=== PATIENT | female | born 1945 | race Caucasian/White ===

== ENCOUNTER 2019-01-31 07:01 | Day surgery (SDC) | payer OTHER ==
[2019-01-31] MEDS ORDERED: CYCLOPENTOLATE 1% OPTH 2 ML ONE (07:35)
[2019-01-31] MEDS ORDERED: NA CHLORIDE 0.9% 500 ML ONE (07:35)
[2019-01-31] MEDS ORDERED: LIDOCAINE 2% MPF 5 ML VIAL ONE (07:35)
[2019-01-31] MEDS ORDERED: PHENYLEPHRINE 10% OPTH 5ML ONE (07:36)
[2019-01-31] MEDS ORDERED: BUPIVACAINE 0.25% PF 10 ML VIAL ONE (07:36)
[2019-01-31] MEDS ORDERED: LIDOCAINE HCL/PF 3.5% OPTH GEL ONE (07:36)
[2019-01-31] MEDS ORDERED: TETRACAINE HCL 0.5% 2ML OPTH ONE (07:36)
[2019-01-31] MEDS ORDERED: CYCLOPENTOLATE 1% OPTH 2 ML OPTH ONE ×2 (07:39→07:53)
[2019-01-31] MEDS ORDERED: PHENYLEPHRINE 10% OPTH 5ML OPTH ONE ×2 (07:39→07:53)
[2019-01-31] MEDS ORDERED: LIDOCAINE 1% MPF 5 ML VIAL ONE (07:48)
[2019-01-31] MEDS ORDERED: BALANCED SALT IRRIG PLAIN 500 ML BTL IRR ONE (08:21)
[2019-01-31] MEDS ORDERED: NS 0.9% VIAL 10 ML ONE (08:21)
[2019-01-31] MEDS ORDERED: EPINEPHRINE/PF 1 MG/ML AMP ONE (08:21)
[2019-01-31] MEDS ORDERED: MOXIFLOXACIN HCL 10 DROPS/ML **OR USE OPTH ONE (08:21)
[2019-01-31] MEDS ORDERED: DUOVISC 1 KIT OPTH ONE (08:21)
[2019-01-31] MEDS ORDERED: LIDOCAINE 1% MPF 2 ML AMPULE ONE (08:21)
[2019-01-31] MEDS ORDERED: FENTANYL CITR 100 MCG/2 ML ONE (09:17)
[2019-01-31] MEDS ORDERED: MIDAZOLAM HCL 2 MG/2 ML INJ ONE (09:17)
--- NOTE | 2019-01-31 10:10 | P.BOP ---
Preoperative diagnosis: Nuclear sclerotic cataract and regular astigmatism OS Postoperative diagnosis: Same Primary procedure: Phacoemulsification with Toric IOL OS Estimated blood loss: None Anesthesia: Local (Topical with anesthesia for cataract surgery OS) Complications: None Implants: [id number] +24.0 @ 1 degrees Transferred to: Other (Day surgery) Condition: Good
--- NOTE | 2019-01-31 20:59 | OP ---
Date of Procedure: 01/31/2019 Surgeon: Luzmaria Almodovar MD Anesthesiologist: Patricia Bauer CRNA, and Jermaine Larson M.D. Preoperative Diagnosis: Nuclear sclerotic cataract and regular astigmatism, OS (left eye). Operation Performed: Phacoemulsification with toric intraocular lens implant, left eye. Anesthesia: Per cataract surgery. Complications: None. Description Of Procedure: In the operating room the patient was prepped and draped in the usual ster ile fashion for ophthalmic surgery. A lid speculum was placed in the left eye. Two paracentesis sit es were made superiorly and inferiorly in the limbal cornea. Viscoat was placed in the anterior neto tiana and a crescent blade was used to make a corneal groove and tunnel, and a keratome was used to ent er the anterior chamber. Provisc was placed in the anterior chamber and a 360 degree capsulotomy was performed with a cystitome. The lens was hydrodissected with BSS and rotated freely. The lens was removed with a stop and chop technique. A 5.31 phaco CDE was used to remove the lens. Residual sridhar ex was removed with the irrigation and aspiration. Provisc was placed in the capsular bag. A [id number] + 24.0 at 1 degree lens was placed in the capsular bag without complications. Irrigation and aspira tion was used to remove residual viscoelastic. The paracentesis sites were hydrated with BSS. The w ound and paracentesis sites were inspected and found to be watertight. Vigamox 0.07 cc was placed in tracamerally at the end of the procedure. The eye was irrigated with balanced salt solution. The ey e was patched with a soft cotton patch and Ervin metal shield. The patient was returned to day surgery in good condition. Comments: Akten was placed in the anterior chamber in the eye in Day Surgery and irrigated out of th e eye with BSS in the OR. Preservative free 1% lidocaine was placed in the anterior chamber prior to Viscoat. Discharge Instructions: Ms. Booker is discharged to home in good condition and is to follow up with Phuong Almodovar in the morning. HOWARD/ASHLEY Voice ID: [id number] Report ID: [id number]
== END 2019-01-31 10:40 | disposition home or self-care (01) ==
LOC: OR 07:01
PROVIDERS: ATTEND Ophthalmology Retina Specialist
PROC: 08RK3JZ Replacement of Left Lens with Synthetic Substitute, Percutaneous Approach (ICD-10-PCS; principal; 2019-01-31 09:10)
DX: H25.12 Age-related nuclear cataract, left eye (principal); H52.222 Regular astigmatism, left eye; H40.059 Ocular hypertension, unspecified eye; H04.123 Dry eye syndrome of bilateral lacrimal glands; I10 Essential (primary) hypertension; I34.1 Nonrheumatic mitral (valve) prolapse; Z88.0 Allergy status to penicillin
CPT/HCPCS: 66984; J0171; J2250; J3010; J2001; V2630; V2787

== ENCOUNTER 2019-05-16 06:57 | Day surgery (SDC) | payer OTHER ==
[2019-05-16] MEDS ORDERED: BUPIVACAINE 0.25% PF 10 ML VIAL ONE (07:44)
[2019-05-16] MEDS ORDERED: TETRACAINE HCL 0.5% 4ML OPTH ONE (07:44)
[2019-05-16] MEDS ORDERED: LIDOCAINE 2% MPF 5 ML VIAL ONE (07:44)
[2019-05-16] MEDS ORDERED: CYCLOPENTOLATE 1% OPTH 2 ML ONE (07:44)
[2019-05-16] MEDS ORDERED: NA CHLORIDE 0.9% 500 ML ONE (07:45)
[2019-05-16] MEDS ORDERED: PHENYLEPHRINE 10% OPTH 5ML ONE (07:45)
[2019-05-16] MEDS ORDERED: CYCLOPENTOLATE 1% OPTH 2 ML OPTH ONE ×2 (07:50→07:55)
[2019-05-16] MEDS ORDERED: PHENYLEPHRINE 10% OPTH 5ML OPTH ONE ×2 (07:50→07:55)
[2019-05-16] MEDS ORDERED: EPINEPHRINE/PF 1 MG/ML AMP ONE (08:06)
[2019-05-16] MEDS ORDERED: NS 0.9% VIAL 10 ML ONE (08:06)
[2019-05-16] MEDS ORDERED: BALANCED SALT IRRIG PLAIN 500 ML BTL IRR ONE (08:06)
[2019-05-16] MEDS ORDERED: DUOVISC 1 KIT OPTH ONE (08:06)
[2019-05-16] MEDS ORDERED: MOXIFLOXACIN HCL 10 DROPS/ML **OR USE OPTH ONE (08:07)
[2019-05-16] MEDS: LIDOCAINE HCL/PF 3.5% OPTH GEL ONE ×3 (08:29→09:10)
[2019-05-16] MEDS ORDERED: FENTANYL CITR 100 MCG/2 ML ONE (08:47)
[2019-05-16] MEDS ORDERED: MIDAZOLAM HCL 2 MG/2 ML INJ ONE (08:47)
[2019-05-16] MEDS ORDERED: LIDOCAINE 1% MPF 2 ML AMPULE ONE (08:55)
--- NOTE | 2019-05-16 09:55 | P.BOP ---
Preoperative diagnosis: Nuclear sclerotic cataract and regular astigmatism OD Postoperative diagnosis: Same Primary procedure: Phacoemulsification with Toric IOL OD Estimated blood loss: none Anesthesia: Local (Topical with anesthesia for cataract surgery) Complications: None Implants: [id number] +24.5 @ 173 Transferred to: Other (Day surgery) Condition: Good
--- NOTE | 2019-05-16 16:53 | OP ---
Date of Procedure: 05/16/2019 Surgeon: Luzmaria Almodovar MD Anesthesiologist: Oswald Campo CRNA and Jermaine Larson MD. Preoperative Diagnosis: Nuclear sclerotic cataract and regularized stigmatism OD (right eye). Operation Performed: Phacoemulsification with toric intraocular lens implant, right eye. Anesthesia: Per cataract surgery. Complications: None. Description Of Procedure: In the operating room the patient was prepped and draped in the usual ster ile fashion for ophthalmic surgery. A lid speculum was placed in the right eye. Two paracentesis si raj were made superiorly and inferiorly in the limbal cornea. Viscoat was placed in the anterior sarah mber and a crescent blade was used to make a corneal groove and tunnel, and a keratome was used to en ter the anterior chamber. Provisc was placed in the anterior chamber and a 360 degree capsulotomy wa s performed with a cystitome. The lens was hydrodissected with BSS and rotated freely. The lens was removed with a stop and chop technique. A 14.78 Phaco CDE was used to remove the lens. Residual co rtex was removed with the irrigation and aspiration. Provisc was placed in the capsular bag. A [id number] +24.5 at 173 degree lens was placed in the capsular bag without complications. Irrigation and asp iration was used to remove residual viscoelastic. The paracentesis sites were hydrated with BSS. Th e wound and paracentesis sites were inspected and found to be watertight. Vigamox 0.07 cc was placed intracamerally at the end of the procedure. The eye was irrigated with balanced salt solution. The eye was patched with a soft cotton patch and Ervin metal shield. The patient was returned to day surgery in good condition. Comments: Akten was placed in the eye in Day Surgery and irrigated out of the eye with BSS in the OR . Preservative-free 1% lidocaine was placed in the anterior chamber prior to Viscoat. Discharge Instructions: Ms. Booker is discharged to home in good condition. She is to follow up with Dr. Almodovar today to check her pressure and then in the morning. HOWARD/MODL Voice ID: [id number] Report ID: [id number]
== END 2019-05-16 10:28 | disposition home or self-care (01) ==
LOC: OR 06:57
PROVIDERS: ATTEND Ophthalmology Retina Specialist
PROC: 08RJ3JZ Replacement of Right Lens with Synthetic Substitute, Percutaneous Approach (ICD-10-PCS; principal; 2019-05-16 09:00)
DX: H25.11 Age-related nuclear cataract, right eye (principal); H52.221 Regular astigmatism, right eye; I10 Essential (primary) hypertension; I34.1 Nonrheumatic mitral (valve) prolapse; F32.9 Major depressive disorder, single episode, unspecified; Z79.899 Other long term (current) drug therapy
CPT/HCPCS: 66984; J0171; J2250; J3010; J2001; V2630; V2787

== ENCOUNTER 2020-02-14 12:12 | Inpatient (IN) | payer OTHER ==
[2020-02-14] MEDS ORDERED: AMIODARONE IN DEXTROSE,ISO-OSM 360 MG/200 ML BAG IV ONE ×2 (12:28→21:09)
[2020-02-14 12:57] LABS: Blood Gas Oxyhemoglobin 65.6 % (94-97); Blood O2 Saturation 65.7 % (92-98.5)
--- NOTE | 2020-02-14 13:03 | EKG ---
Test Date: 2020-02-14 Test Time: 12:32:36 Hotel Operations Manager: STEVE MEASUREMENT RESULTS: Intervals: Rate: 84 IN: QRSD: 118 QT: 348 QTc: 411 [place]: P: IN: QRS: -57 T: 73 INTERPRETIVE STATEMENTS: Atrial fibrillation Left axis deviation Incomplete right bundle branch block Septal infarct, age undetermined Abnormal ECG Compared to ECG 01/19/2004 12:07:00 Left-axis deviation now present Incomplete right bundle-branch block now present Myocardial infarct finding now present Sinus rhythm no longer present First degree AV block no longer present ST (T wave) deviation no longer present Electronically Signed On 02-14-20 13:03:03 CDT by Shai Velasquez
--- NOTE | 2020-02-14 13:06 | RAD REPORT ---
EXAM DESCRIPTION: RAD - Chest Single View - 02/14/2020 12:46 pm CLINICAL HISTORY: post cpr and intubation TECHNIQUE: AP portable chest image was obtained 02/14/2020 12:46 pm . FINDINGS: Endotracheal tube is in place. Tip is at the top of the aortic arch. NG tube has been plac ed. Tip extends to at least the diaphragm level. The tip of the NG tube is off the field of view and may not have reached the stomach. Resuscitation paddle overlies the upper right chest. Lung volumes are low. No diffuse pulmonary edema pattern seen. No focal mass or consolidation. Motion artifacts are present. IMPRESSION: ET tube in good position near the top of the aortic arch. NG tube has been placed but is not fully assessed. Tip is off the field of view. Motion artifacts are present. No focal consolidation or diffuse pulmonary edema.
[2020-02-14] MEDS ORDERED: NA BICARB 8.4% 150 MEQ in D5W 1,000 ML IV ONE (13:45)
[2020-02-14 14:27] LABS: Absolute Lymphocytes (CBC) 6.4 K/uL (0.7-4.9); Basophils % 0.5 % (0-1.3); Hematocrit 43.1 % (36.0-45.0); Lymphocytes % 29.1 % (15.3-44.8); MPV 9.3 fL (7.6-11.3); RBC Red Blood Cell Count 4.54 M/uL (3.86-4.86)
[2020-02-14 14:28] LABS: Protime INR 1.62
[2020-02-14 14:44] LABS: Albumin 2.5 g/dL (3.4-5.0); Bilirubin Total 0.6 mg/dL (0.2-1.0); Protein, Total 5.6 g/dL (6.4-8.2)
[2020-02-14 14:50] LABS: Bilirubin Direct 0.2 mg/dL (0-0.2); Magnesium 2.6 mg/dL (1.8-2.4); Potassium 5.2 mmol/L (3.5-5.1)
[2020-02-14 15:29] LABS: Troponin (Emerg Dept Use Only) 81.8 ng/mL (0.0-0.045)
[2020-02-14 15:43] LABS: Urine Bacteria <20 /HPF (<20); Urine Culture Reflex Order NOT NEEDED; Urine RBC <5 /HPF (NONE SEEN)
[2020-02-14] MEDS ORDERED: EPINEPHRINE/PF 1 MG/ML AMP ONE (15:45)
[2020-02-14] MEDS ORDERED: NA CHLORIDE 0.9% 1,000 ML ONE (16:11)
[2020-02-14 16:29] LABS: Arterial Blood Carboxyhemoglob 0.6 % (0-1.5); Blood Gas Oxyhemoglobin 98.1 % (94-97); Blood O2 Saturation 99.5 % (92-98.5)
[2020-02-14 16:29] LABS: Blood Morphology Comment NOT SEEN (NOT SEEN); Platelet Estimate ADEQ
--- NOTE | 2020-02-14 16:29 | RAD REPORT ---
EXAM DESCRIPTION: CT - Head C Spine Cap Wo Con - 02/14/2020 4:01 pm CLINICAL HISTORY: Trauma, head and neck injury. Chest, abdomen and pelvis pain. collapse, CPR COMPARISON: No comparisonsNo comparisons TECHNIQUE: CT head without contrast. CT cervical spine without contrast with coronal and sagittal reformatted images. CT chest, abdomen and pelvis without contrast with coronal and sagittal reformatted images of the spi ne. All CT scans are performed using dose optimization technique as appropriate and may include automated exposure control or mA/KV adjustment according to patient size. FINDINGS: CT HEAD WITHOUT CONTRAST: No intracranial hemorrhage, hydrocephalus or extra-axial fluid collection. Mild hypodensity in the pe riventricular region probably chronic microvascular ischemic changes. No areas of brain edema or midl ine shift. Calcification of the left vertebral artery seen. The paranasal sinuses and mastoids are clear. The calvarium is intact. CT CERVICAL SPINE WITHOUT CONTRAST: No fracture or subluxation. The prevertebral soft tissues are normal in thickness.Nasogastric and en dotracheal tube noted. CT CHEST, ABDOMEN, PELVIS WITHOUT CONTRAST: NOTE: Lack of contrast is a significant limitation in the assessment of trauma related findings. Spec ifically, solid organ, vascular and bowel evaluation is significantly limited. Large areas of lung consolidation are seen involving the posterior aspect of both lower lobes as well as the posterior aspect of both upper lobes to a lesser extent, likely representing pneumonia.No pne umothorax or pericardial/pleural fluid. Distention of the colon with stool is present. Mild pneumatosis is suspected in the region of the cec um with air present in the adjacent mesenteric veins. No acute solid organ finding. No concerning pelvic findings. No fractures. IMPRESSION: Airspace consolidation is present along the posterior aspect of both lungs likely repres enting pneumonia. Pneumatosis coli involving the cecum with small amount of air seen in the adjacent mesenteric veins. Significant distention of the colon with stool is present as well. This may indicate bowel ischemia.
--- NOTE | 2020-02-14 16:55 | ER ---
Nurse's Notes [facility] Name: Mariaa Booker Age: 74 yrs Sex: Female : 1945 Arrival Date: 02/14/2020 Time: 12:13 Bed 4 Private MD: Diagnosis: Acidosis;Cardiac arrest;Multifocal pneumonia Presentation: 02/13 12:14 Method Of Arrival: EMS: [facility] bp 12:14 Chief complaint: EMS states: WITNESSED ARREST WHILE DOING YARDWORK. Care prior to bp arrival: Assisted ventilation, Oral intubation, CPR via thumper performed by EMS was defibrillated Medication(s) given: EPI x6, 450MG AMIO, 1 GRAM CALCIUM, 100 mEQ BICARB, DEFIB x8 IV initiated. 15 R TIB IO Glucose check: 183 Oxygen administered. via AMBU bag. Compressions began at 11:24. 12:14 Acuity: DINESH 1 bp 12:14 Ebola Screen: No symptoms or risks identified at this time. Initial Sepsis Screen: Does bp the patient meet any 2 criteria? No. Patient's initial sepsis screen is negative. Does the patient have a suspected source of infection? No. Patient's initial sepsis screen is negative. Risk Assessment: Do you want to hurt yourself or someone else? Patient reports no desire to harm self or others. 12:14 Onset of symptoms was February 14, 2020 at 11:24. bp 15:00 Coronavirus screen: The patient HAS traveled to a country currently being monitored by ss the [facility] in the past 14 days. NO Fever/Cough Son reports that Pt recently returned from [place] 5 days ago (02/09/20) Pt did not have known cough and/or fever. Triage Assessment: 12:14 General: Behavior is unresponsive. General: Appears distressed. Pain: Unable to use bp pain scale. Patient is unresponsive. EENT: No deficits noted. Neuro: Level of Consciousness is unresponsive. Cardiovascular: Rhythm is ventricular fibrillation. Respiratory: Airway via oral intubation. GI: No signs and/or symptoms were reported involving the gastrointestinal system. : No signs and/or symptoms were reported regarding the genitourinary system. Derm: No deficits noted. Musculoskeletal: No deficits noted. Historical: - Allergies: 12:14 No Known Allergies; bp - Home Meds: 12:14 Unable to obtain [Active]; bp - PMHx: 12:14 Unable to obtain; bp - Immunization history:: Adult Immunizations unknown. - Social history:: Smoking status: unknown. - Unable to obtain history due to: comatose state. Screenin:14 Abuse screen: Denies threats or abuse. Denies injuries from another. Nutritional bp screening: No deficits noted. Tuberculosis screening: No symptoms or risk factors identified. 12:47 Fall Risk None identified. bp Assessment: 12:14 CPR assessment: unresponsive, pupils fixed \T\ dilated, intubated, Ambu ventilation, bp pulses present w/ compressions. Cardiac rhythm is V fib. General: Appears CPR IN PROCESS. Neuro: Level of Consciousness is unresponsive. EENT: No deficits noted. Cardiovascular: Rhythm is ventricular fibrillation. Respiratory: Airway via oral intubation. GI: No signs and/or symptoms were reported involving the gastrointestinal system. : No signs and/or symptoms were reported regarding the genitourinary system. Derm: No deficits noted. Musculoskeletal: No deficits noted. 12:14 General: PT ON PADS/MONITOR, VF NOTED. EPI x1. bp 12:16 General: EPI x1. VF NOTED ON MONITOR. CONTINUING CPR WITH THUMPER. bp 12:17 General: BICARB x1 GIVEN. bp 12:18 General: 20 G LEFT AC. BGL 331. bp 12:22 General: EPI x1. ROSC. bp 13:26 Reassessment: PT REMAINS IN ROSC. SB ON MONITOR, ABG GROSSLY ABNORMAL BUT IMPROVING. bp 13:33 Reassessment: PER FAMILY, PT WAS ON HOME QUARANTINE FOR NCOVID-19. MD INFORMED. bp 14:13 Reassessment: FAMILY AT B/S. CT PENDING FOR LAB REDRAW. bp 14:58 Reassessment: CT ON HOLD FOR LEVOPHED GTT. ss 15:20 Reassessment: NCOVID-19 SWAB COMPLETED AND SENT BY STAFF. ss 16:16 Reassessment: PT RETURNED FROM CT. ss 17:48 Reassessment: DR RALPH AT B/S FOR EVAL. PT INCONTINENT TO LARGE LIQUID BM. ss 19:00 Reassessment: Report received at bedside. Pt remains on ventilator, IV drips infusing jb4 freely, NG tube and Carver catheter in place. PT remains unresponsive, Rhonchi noted bilaterally, symmetrical chest rise and fall, bowel sounds are equal bilaterally. 20:00 Reassessment: Pt remains intubated, with infusions flowing freely. No s/s of jb4 infiltration or phlebitis noted. Pt cleaned and linens changes. Bloody b/m noted with silvia red blood. Carver and NG tube remain in place. 20:50 Reassessment: PT transferred upstairs to ICU via stretcher, assisted by electro mechanical technologist's in jb4 pushing the stretcher as ED nurse ventilated the PT via Ambu bag. Pt remains unconscious, is moving more, no purposeful movement noted. Vital signs remain stable. ET tube, Carver, and NG tube remain in place with no sign of dislodgement. Vital Signs: 12:14 Resp 16; Temp 97.5; Pulse Ox 100% ; Weight 127.01 kg; bp 12:45 BP 114 / 63; Pulse 53; Resp 29; Pulse Ox 100% on ETT vent; bp 13:25 BP 106 / 71; Pulse 60; Resp 29; Pulse Ox 100% ; bp 13:50 BP 89 / 51; Pulse 61; Resp 22; Pulse Ox 100% ; bp 14:13 BP 86 / 42; Pulse 57; Resp 26; Pulse Ox 100% ; bp 14:57 BP 87 / 39; Pulse 76; Resp 21; Pulse Ox 100% ; ss 15:19 BP 88 / 68; Pulse 79; Resp 26; Pulse Ox 100% ; ss 16:16 BP 89 / 70; Pulse 93; Resp 27; Pulse Ox 99% ; ss 17:48 BP 110 / 82; Pulse 84; Resp 30; Pulse Ox 97% ; ss 18:18 BP 116 / 86; Pulse 94; Resp 39; Pulse Ox 96% ; ss 18:49 BP 66 / 37; Pulse 87; Resp 35; Pulse Ox 100% ; bp 19:00 BP 80 / 75 RA; Pulse 85; Resp 18; Pulse Ox 100% on 75% FiO2 ETT vent; jb4 19:15 BP 72 / 35 RA; Pulse 85; Resp 17; Pulse Ox 100% on 75% FiO2 ETT vent; jb4 19:20 BP 84 / 58 RA; Pulse 85; Resp 18; Pulse Ox 100% on 75% FiO2 ETT vent; jb4 19:40 BP 77 / 56 RA; Pulse 80; Resp 16; Pulse Ox 100% on 75% FiO2 ETT vent; jb4 19:50 BP 90 / 61 RA; Pulse 82; Resp 18; Temp 98.4(A); Pulse Ox 100% on 75% FiO2 ETT vent; jb4 20:00 BP 68 / 57 RA; Pulse 84; Resp 16; Pulse Ox 100% on 75% FiO2 ETT vent; jb4 20:10 BP 58 / 48 RA; Pulse 80; Resp 17; Pulse Ox 100% on 75% FiO2 ETT vent; jb4 20:30 BP 129 / 97 LA; Pulse 88; Resp 18; Pulse Ox 100% on 75% FiO2 ETT vent; jb4 20:50 BP 141 / 81; Pulse 82; Resp 17; Pulse Ox 100% on 15 lpm ETT ambu; jb4 19:15 Levophed increased to 12.5 mcg/min jb4 19:40 Levophed adjusted to to 15mcg/minute. jb4 20:00 Levophed increased to 20mcg/min jb4 20:10 Levophed increased to to 25mcg/min. jb4 20:50 Levophed decreased to 20mcg/min jb4 ED Course: 12:13 Patient arrived in ED. ag5 12:14 Patient has correct armband on for positive identification. Placed in gown. Bed in low bp position. Call light in reach. Side rails up X2. 12:14 No provider procedures requiring assistance completed. Maintain EMS IV. Dressing bp intact. Good blood return noted. Site clean \T\ dry. Gauge \T\ site: 15 G R TIB. 12:14 NGT:. bp 12:25 Aguilar Flynn, RN is Primary Nurse. bp 12:27 Triage completed. bp 12:31 Christian Jose MD is Attending Physician. rn 12:47 Arm band placed on. bp 12:48 XRAY Chest (1 view) In Process Unspecified. EDMS 12:48 Patient has correct armband on for positive identification. Placed in gown. Bed in low bp position. Call light in reach. Side rails up X2. 12:51 EKG done, by marine electronics technician. reviewed by Christian Jose MD. tc 13:38 Carver cath inserted, using sterile technique, 16 Fr., by corrugator supervisor, balloon inflated, to jl7 gravity drainage, urine specimen collected. returned clear yellow urine. Patient tolerated well. Inserted by Pari corrugator supervisor. 16:01 Head C Spine Cap Wo Con In Process Unspecified. EDMS 16:51 Nigel Ralph MD is Hospitalizing Provider. rn 21:00 Patient admitted, IV remains in place. jb4 21:21 Primary Nurse role handed off by Aguilar Flynn, RN jb4 21:21 Curtis Kimble, RN is Primary Nurse. jb4 Administered Medications: 12:45 Drug: NS 0.9% 1000 ml Route: IV; Rate: 1000 ml; Site: right femoral; bp 13:49 Follow up: IV Status: Completed infusion; IV Intake: 1000ml bp 13:00 Drug: Sodium Bicarbonate 1 amp Route: IVP; Site: right femoral; bp 14:00 Follow up: Response: No adverse reaction bp 13:10 Drug: Sodium Bicarbonate 1 amp Route: IVP; Site: right femoral; bp 14:00 Follow up: Response: No adverse reaction bp 13:49 Drug: D5W 1000 ml, Sodium Bicarbonate 150 mEq Route: IV; Rate: 150 ml/hr; Site: right bp femoral; 15:18 Drug: Levophed (4 mg/250 mL D5W 4 mcg/min Route: IV; Rate: calculated rate; Site: right ss femoral; 21:00 Follow up: Response: No adverse reaction; IV Status: Infusion continued upon admission jb4 16:10 Drug: NS 0.9% 1000 ml Route: IV; Rate: 1000 ml; Site: right femoral; ss 17:09 Follow up: IV Status: Completed infusion; IV Intake: 1000ml ss 16:45 Drug: Zosyn 4.5 grams Route: IVPB; Infused Over: 60 mins; Site: left antecubital; ss 17:45 Follow up: IV Status: Completed infusion; IV Intake: 100ml bp 18:00 Drug: vancoMYCIN 1 grams Route: IVPB; Infused Over: 2 hrs; Site: right femoral; bp 20:00 Follow up: Response: No adverse reaction; IV Status: Completed infusion jb4 Intake: 13:49 IV: 1000ml; Total: 1000ml. bp 17:09 IV: 1000ml; Total: 2000ml. ss 17:45 IV: 100ml; Total: 2100ml. bp Outcome: 12:22 Outcome Resuscitation successful bp 16:52 Decision to Hospitalize by Provider. rn 21:00 Admitted to ICU accompanied by nurse, accompanied by tech, via stretcher, with oxygen, jb4 on monitor, with chart, Report called to ANGELES Dill 21:00 Condition: stable 21:21 Patient left the ED. jb4 Signatures: Dispatcher [employer] EDMS Christian Jose MD MD rn Smirch, Shelby, RN RN Marcie Mohr, math instructor EKG Ttc Curtis Kimble RN RN jb4 Leslie Eastman RN RN jl7 Aguilar Flynn, RN RN Raúl, [place] ag5 Corrections: (The following items were deleted from the chart) 12:32 12:25 Chief complaint: EMS states: WITNESSED ARREST WHILE DOING YARDWORK bp bp 12:32 12:25 Care prior to arrival: Assisted ventilation, Oral intubation, CPR via thumper bp performed by EMS was defibrillated Medication(s) given: EPI x6, 450MG AMIO, 1 GRAM CALCIUM, 100 mEQ BICARB, DEFIB x8 IV initiated. 15 R TIB IO Glucose check: 183 Oxygen administered. via AMBU bag bp 12:32 12:25 Compressions began at 11:24. bp bp 12:32 12:25 Method Of Arrival: EMS: [facility] bp bp 12:32 12:25 Acuity: DINESH 1 bp bp 12:33 12:25 CPR assessment: unresponsive, pupils fixed \T\ dilated, intubated, Ambu bp ventilation, pulses present w/ compressions, bp 12:33 12:25 Cardiac rhythm is V fib bp bp 12:33 12:25 General: Appears CPR IN PROCESS. bp bp 12:33 12:25 Neuro: Level of Consciousness is unresponsive, bp bp 12:33 12:25 EENT: No deficits noted. bp bp 12:33 12:25 Cardiovascular: Rhythm is ventricular fibrillation bp bp 12:33 12:25 Respiratory: Airway via oral intubation bp bp 12:33 12:25 GI: No signs and/or symptoms were reported involving the gastrointestinal system. bp bp 12:33 12:25 : No signs and/or symptoms were reported regarding the genitourinary system. bp bp 12:33 12:25 Derm: No deficits noted. bp bp 12:33 12:25 Musculoskeletal: No deficits noted. bp bp 12:33 12:25 Resp 16bpm; Pulse Ox 100%; Temp 97.5F; 127.01 kg; bp bp 12:34 12:25 Abuse screen: Denies threats or abuse. Denies injuries from another. bp bp 12:34 12:25 Nutritional screening: No deficits noted. bp bp 12:34 12:25 Tuberculosis screening: No symptoms or risk factors identified. bp bp 12:34 12:25 Patient has correct armband on for positive identification. Placed in gown. Bed bp in low position. Call light in reach. Side rails up X2. bp 16:02 12:14 Coronavirus screen: The patient has NOT traveled to a country currently being ss monitored by the [facility] within the last 14 days. The patient has NOT had contact with any known and/or suspected case of coronavirus. Proceed with normal triage procedures. bp 17:49 17:48 Reassessment: DR RALPH AT B/S FOR EVAL ss ss 02/14 00:02/13 19:00 BP 80 / 75; Pulse 85bpm; Resp 18bpm; Pulse Ox 100% FiO2 100% vent; jb4 jb4 02/14 00:02/13 19:15 BP 72 / 35; Pulse 85bpm; Resp 17bpm; Pulse Ox 100% ET / Ventilator; jb4 Levophed increased to 12.5 mcg/min; jb4 02/14 00:02/13 19:20 BP 84 / 58; Pulse 85bpm; Resp 18bpm; Pulse Ox 100% FiO2 100% vent; jb4 jb4
--- NOTE | 2020-02-14 16:55 | EDPHYS ---
Physician Documentation [facility] Name: Mariaa Booker Age: 74 yrs Sex: Female : 1945 Arrival Date: 02/14/2020 Time: 12:13 Bed 4 Private MD: ED Physician Christian Jose HPI: 02/13 13:13 This 74 yrs old Female presents to ER via EMS with complaints of CPR. rn 13:13 Preceding the arrest, the patient collapsed. The arrest occurred at home. Pre-hospital rn course: The arrest was witnessed Bystanders at the scene did not perform CPR. EMS care prior to arrival: initiation of ACLS, ACLS has been in progress for 45 minutes. ACLS details: Initial rhythm was V-fib. The presenting rhythm is PEA. Airway: oral intubation, Medications given by EMS prior to arrival - Response to therapy: return of rhythm. Witnessed arrest, collapse while doing yard work, no CPR, initial rhythm Vfib, shocked multiple times, given epi/bicarb/amio, no response, no known hx. . Historical: - Allergies: 12:14 No Known Allergies; bp - Home Meds: 12:14 Unable to obtain [Active]; bp - PMHx: 12:14 Unable to obtain; bp - Immunization history:: Adult Immunizations unknown. - Social history:: Smoking status: unknown. - Unable to obtain history due to: comatose state. ROS: 13:13 Unable to obtain ROS due to comatose state. rn Exam: 13:13 Constitutional: Overweight female, GCS 3. Head/Face: Normocephalic, atraumatic. rn Eyes: Pupils 6mm, non-reactive ENT: dry MM, intubated prior to arrival, with blood in oropharynx Cardiovascular: Bradycardic, irregular, intact distal pulses Respiratory: coarse bilateral breath sounds with bagging Abdomen/GI: soft, non-tender MS/ Extremity: Pulses equal, no cyanosis. Mottled extremities Neuro: GCS 3, intubated 13:17 ECG was reviewed by the Attending Physician. rn Vital Signs: 12:14 Resp 16; Temp 97.5; Pulse Ox 100% ; Weight 127.01 kg; bp 12:45 BP 114 / 63; Pulse 53; Resp 29; Pulse Ox 100% on ETT vent; bp 13:25 BP 106 / 71; Pulse 60; Resp 29; Pulse Ox 100% ; bp 13:50 BP 89 / 51; Pulse 61; Resp 22; Pulse Ox 100% ; bp 14:13 BP 86 / 42; Pulse 57; Resp 26; Pulse Ox 100% ; bp 14:57 BP 87 / 39; Pulse 76; Resp 21; Pulse Ox 100% ; ss 15:19 BP 88 / 68; Pulse 79; Resp 26; Pulse Ox 100% ; ss 16:16 BP 89 / 70; Pulse 93; Resp 27; Pulse Ox 99% ; ss 17:48 BP 110 / 82; Pulse 84; Resp 30; Pulse Ox 97% ; ss 18:18 BP 116 / 86; Pulse 94; Resp 39; Pulse Ox 96% ; ss 18:49 BP 66 / 37; Pulse 87; Resp 35; Pulse Ox 100% ; bp 19:00 BP 80 / 75 RA; Pulse 85; Resp 18; Pulse Ox 100% on 75% FiO2 ETT vent; jb4 19:15 BP 72 / 35 RA; Pulse 85; Resp 17; Pulse Ox 100% on 75% FiO2 ETT vent; jb4 19:20 BP 84 / 58 RA; Pulse 85; Resp 18; Pulse Ox 100% on 75% FiO2 ETT vent; jb4 19:40 BP 77 / 56 RA; Pulse 80; Resp 16; Pulse Ox 100% on 75% FiO2 ETT vent; jb4 19:50 BP 90 / 61 RA; Pulse 82; Resp 18; Temp 98.4(A); Pulse Ox 100% on 75% FiO2 ETT vent; jb4 20:00 BP 68 / 57 RA; Pulse 84; Resp 16; Pulse Ox 100% on 75% FiO2 ETT vent; jb4 20:10 BP 58 / 48 RA; Pulse 80; Resp 17; Pulse Ox 100% on 75% FiO2 ETT vent; jb4 20:30 BP 129 / 97 LA; Pulse 88; Resp 18; Pulse Ox 100% on 75% FiO2 ETT vent; jb4 20:50 BP 141 / 81; Pulse 82; Resp 17; Pulse Ox 100% on 15 lpm ETT ambu; jb4 19:15 Levophed increased to 12.5 mcg/min jb4 19:40 Levophed adjusted to to 15mcg/minute. jb4 20:00 Levophed increased to 20mcg/min jb4 20:10 Levophed increased to to 25mcg/min. jb4 20:50 Levophed decreased to 20mcg/min jb4 Procedures: 13:12 Central Line: the site was prepped with Betadine, in sterile fashion, a triple lumen rn catheter was inserted, in the right femoral vein, in 2 attempts. placement was verified, by blood return, the site was dressed with Tegaderm, using sterile technique, the patient tolerated the procedure, well. MDM: 12:32 Patient medically screened. rn 14:44 ED course: family hooker just returned from trip to [place] 5 days ago, was rn asymptomatic but traveled with large group of women. . 14:59 ED course: [facility] notified of recent trip to [place], now on [facility] rn list, anticipate testing kit released. . 16:48 Differential diagnosis: arrythmia, cardiac arrest, respiratory arrest, renal failure. rn Data reviewed: vital signs, nurses notes, lab test result(s), EKG, radiologic studies, CT scan, plain films, and as a result, I will admit patient. Counseling: I had a detailed discussion with the patient and/or guardian regarding: the historical points, exam findings, and any diagnostic results supporting the discharge/admit diagnosis, lab results, radiology results, the need for further work-up and treatment in the hospital. Admission orders: after a detailed discussion of the patient's condition and case, the admit orders are written by me. 16:48 ED course: Family notified of testing, they are aware of situation, they are going to rn go home and self quarantine atleast until results of testing. They have notified other travel partners to self-quarantine as well. COVID-19 test performed by ANGELES Armendariz, and sent for laboratory testing.. 02/13 12:33 Order name: Basic Metabolic Panel; Complete Time: 15:50 rn 02/13 12:33 Order name: CBC with Diff; Complete Time: 16:36 rn 02/13 12:33 Order name: LFT's; Complete Time: 15:50 rn 02/13 12:33 Order name: Magnesium; Complete Time: 15:50 rn 02/13 12:33 Order name: NT PRO-BNP; Complete Time: 15:50 rn 02/13 12:33 Order name: PT-INR; Complete Time: 14:45 rn 02/13 12:33 Order name: Troponin (emerg Dept Use Only); Complete Time: 15:50 rn 02/13 12:33 Order name: Blood Culture Adult (2) rn 02/13 12:33 Order name: Lactate; Complete Time: 15:50 rn 02/13 12:33 Order name: ABG; Complete Time: 13:18 rn 02/13 12:36 Order name: Glucose, Ancillary Testing; Complete Time: 13:00 EDMS 02/13 14:49 Order name: Urine Dipstick--Ancillary (enter results); Complete Time: 17:49 bd 02/13 14:53 Order name: Urine Microscopic Only; Complete Time: 15:50 ss 02/13 15:38 Order name: Miscellaneous Micro Reference; Complete Time: 15:50 EDMS 02/13 12:33 Order name: XRAY Chest (1 view); Complete Time: 13:18 rn 02/13 15:12 Order name: Head C Spine Cap Wo Con; Complete Time: 16:36 EDMS 02/13 16:01 Order name: ABG; Complete Time: 17:49 rn 02/13 16:30 Order name: Manual Differential; Complete Time: 16:36 EDMS 02/13 17:00 Order name: Flu; Complete Time: 17:49 rn 02/13 18:27 Order name: Lactate Sepsis 2 HR Follow-up EDMS 02/13 18:59 Order name: Miscellaneous Test Lab EDMS 02/13 12:33 Order name: EKG; Complete Time: 12:36 rn 02/13 12:33 Order name: Cardiac monitoring; Complete Time: 13:08 rn 02/13 12:33 Order name: EKG - Nurse/Tech; Complete Time: 13:08 rn 02/13 12:33 Order name: IV Saline Lock; Complete Time: 13:08 rn 02/13 12:33 Order name: Labs collected and sent; Complete Time: 13:08 rn 02/13 12:33 Order name: O2 Per Protocol; Complete Time: 13:08 rn 02/13 12:33 Order name: O2 Sat Monitoring; Complete Time: 13:08 rn 02/13 14:49 Order name: Urine Dipstick-Ancillary (obtain specimen); Complete Time: 14:49 ss EC: Rate is 84 beats/min. Rhythm is irregularly irregular. Left axis deviation noted. QRS rn is positive in lead I and negative in lead aVF. QRS interval is normal. QT interval is normal. No Q waves. No ST changes noted. Clinical impression: Atrial Fibrillation. Interpreted by me. Reviewed by me. Administered Medications: 12:45 Drug: NS 0.9% 1000 ml Route: IV; Rate: 1000 ml; Site: right femoral; bp 13:49 Follow up: IV Status: Completed infusion; IV Intake: 1000ml bp 13:00 Drug: Sodium Bicarbonate 1 amp Route: IVP; Site: right femoral; bp 14:00 Follow up: Response: No adverse reaction bp 13:10 Drug: Sodium Bicarbonate 1 amp Route: IVP; Site: right femoral; bp 14:00 Follow up: Response: No adverse reaction bp 13:49 Drug: D5W 1000 ml, Sodium Bicarbonate 150 mEq Route: IV; Rate: 150 ml/hr; Site: right bp femoral; 15:18 Drug: Levophed (4 mg/250 mL D5W 4 mcg/min Route: IV; Rate: calculated rate; Site: right ss femoral; 21:00 Follow up: Response: No adverse reaction; IV Status: Infusion continued upon admission jb4 16:10 Drug: NS 0.9% 1000 ml Route: IV; Rate: 1000 ml; Site: right femoral; ss 17:09 Follow up: IV Status: Completed infusion; IV Intake: 1000ml ss 16:45 Drug: Zosyn 4.5 grams Route: IVPB; Infused Over: 60 mins; Site: left antecubital; ss 17:45 Follow up: IV Status: Completed infusion; IV Intake: 100ml bp 18:00 Drug: vancoMYCIN 1 grams Route: IVPB; Infused Over: 2 hrs; Site: right femoral; bp 20:00 Follow up: Response: No adverse reaction; IV Status: Completed infusion jb4 Disposition: 16:48 Critical Care:. rn Disposition: 02/14/20 16:52 Hospitalization ordered by Nigel Ralph for Inpatient Admission. Preliminary diagnosis are Acidosis, Cardiac arrest, Multifocal pneumonia. - Bed requested for Intensive Care Unit. - Status is Inpatient Admission. jb4 - Condition is Serious. - Problem is new. - Symptoms have improved. Critical care time excluding procedures: 16:48 Critical care time: Bedside Care: 30 minutes, Consultation: 5 minutes, Family rn Intervention: 15 minutes. Total time: 50 minutes Signatures: Dispatcher [employer] Jennifer Bruno RN RN dw Christian Jose MD MD rn Smirch, Shelby, ANGELES RN ss Curtis Kimble, ANGELES RN jb4 Aguilar Flynn, RN RN bp Corrections: (The following items were deleted from the chart) 15:12 13:12 Head C Spine MPR Wo Con+CT.RAD.BRZ ordered. EDNH EDNH 15:12 13:12 Angio Aorta For Dissection+CT.RAD.BRZ ordered. [facility] EDNH 17:43 16:52 Hospitalization Ordered by Nigel Ralph MD for Inpatient Admission. Preliminary dw diagnosis is Acidosis; Cardiac arrest; Multifocal pneumonia. Bed requested for Intensive Care Unit. Status is Inpatient Admission. Condition is Serious. Problem is new. Symptoms have improved. rn 21:21 17:43 02/14/2020 16:52 Hospitalization Ordered by Nigel Ralph MD for Inpatient jb4 Admission. Preliminary diagnosis is Acidosis; Cardiac arrest; Multifocal pneumonia. Bed requested for Intensive Care Unit. Status is Inpatient Admission. Condition is Serious. Problem is new. Symptoms have improved. dw
[2020-02-14] MEDS ORDERED: PIPERACIL/TAZO 4.5 GM VIAL IV ONE (17:09)
[2020-02-14] MEDS ORDERED: NA CHLORIDE 0.9% 250 ML ONE ×2 (17:09→22:36)
[2020-02-14 17:28] LABS: Urine Blood NEGATIVE (NEG); Urine Glucose NEGATIVE (NEG); Urine Protein NEGATIVE (NEG); Urine Specific Gravity 1.025 (1.005-1.030); Urine pH 5.5 (5.0-7.0)
[2020-02-14] MEDS ORDERED: VANCOMYCIN/NS 1 gm 1 GM/250 ML BAG IVPB ONE (18:00)
--- NOTE | 2020-02-14 19:38 | P.HP ---
Certification for Inpatient Patient admitted to: Inpatient With expected LOS: >2 Midnights Practitioner: I am a practitioner with admitting privileges, knowledge of patient current condition, hospital course, and medical plan of care. Services: Services provided to patient in accordance with Admission requirements found in Title 42 Section 412.3 of the Code of Federal Regulations Patient History Date of Service: 02/14/20 Reason for admission: COLLAPSED AT HOME History of Present Illness: MS. CARRILLO COLLAPSED AT HOME. SHE PER FAMILY WAS OKAY THIS AM. SHE WAS FOUND TO HAVE V.FIB, WAS INTUBATED, SHOCKED AND ACLS PROTOCOL WAS FOLLOWED BY ER STAFF. SHE IS COMATOSE, SHE HAS NSR. SHE IS ON LEVOPHED DRIP. SHE HAS BEEN TO [place] AND JUST CAME BACK 5 DAYS AGO. SHE HAD NO FEVER OR DYSPNEA BEFORE SHE COLLAPSED. HER FAMILY HAS BEEN SENT HOME TO QUARANTINE UNTILS RESULTS ARE BACK. Allergies Penicillins Allergy (Verified 05/16/19 08:22) Rash Home Medications: Cholecalciferol (Vitamin D3) [Vitamin D 5,000 IU Cap*] 5,000 unit PO DAILY 01/26 Diphenhydramine HCl [Allergy Medication] 25 mg PO DAILY 01/26/19 Duloxetine [Cymbalta *] 60 mg PO BID 01/26/19 Losartan Potassium [Cozaar*] 50 mg PO [id number] 01/26/19 Glutathione 1 tab MC DAILY 05/04/19 L.acidoph,Paracasei, B.lactis [Probiotic] 1 each PO DAILY 05/04/19 Review of Systems is unable to be obtained Physical Examination - Physical Exam General: Comatose HEENT: Mucous membr. moist/pink Neck: Supple, 2+ carotid pulse no bruit, No LAD, Without JVD or thyroid abnormality Respiratory: Diminished Cardiovascular: Regular rate/rhythm, Normal S1 S2 Gastrointestinal: Normal bowel sounds, No tenderness Musculoskeletal: No tenderness Integumentary: No rashes Neurological: Other (COMATOSE, NO RESPONSE TO PAINFUL STIMULUS AND PUPILS ARE NOT REACTING TO LIGHT) Lymphatics: No axilla or inguinal lymphadenopathy - Studies Laboratory Data (last 24 hrs) 02/14/20 14:05: PT 18.8 H, INR 1.62 02/14/20 14:05: WBC 22.0 H*, Hgb 13.5, Hct 43.1, Plt Count 218 02/14/20 14:05: Sodium 142, Potassium 5.2 H, BUN 25 H, Creatinine 1.77 H, Glucose 447 H*, Magnesium 2.6 H, Total Bilirubin 0.6, AST 1142 H*, ALT 1175 H*, Alkaline Phosphatase 191 H Microbiology Data (last 24 hrs): 02/14/20 17:10 Nasopharnyx Influenza Type A Antigen Screen - Final 02/14/20 17:10 Nasopharnyx Influenza Type B Antigen Screen - Final Assessment and Plan - Problems (Diagnosis) (1) Ventricular fibrillation Current Visit: Yes Status: Acute Plan: THIS COULD BE PRIMARY OR SECONDARY TO HER PULMONARY PROBLEMS. SHE IS ON AMIODARONE DRIP. HER CONDITION IS SERIOUS AND SHE MAY NOT SURVIVE. I CALLED FAMILY TO DISCUSS WITH THEM. (2) ARDS (adult respiratory distress syndrome) Current Visit: Yes Status: Acute Plan: TESTING FOR COVID 19 WAS DONE. TEST WILL BE DONE BY [facility]. TURNOVER TIME IS 5 DAYS. THIS IS FOR ACADEMIC AND EPIDEMIOLOGIC REASON. RESULTS WILL NOT ALTER HER POOR PROGNOSIS. IV ABX STARTED. CONSULTED DR. STEVENSON AND DR. NGUYEN OR [facility]. (3) Septic shock Current Visit: Yes Status: Acute Plan: IV ABX. IV FLUIDS LEVOPHED DRIP. VANCOMYCIN AND MERREM. SHE MOST LIKELY WILL NOT SURVIVE. - Advance Directives Does patient have a Living Will: No Does patient have a Durable POA for Healthcare: No
[2020-02-14] MEDS ORDERED: ALBUTEROL 2.5 MG/3 ML NEB SOL NEB PRN (20:14)
[2020-02-14] MEDS ORDERED: LORazepam 2 MG/ML VIAL IV PRN (20:14)
[2020-02-14] MEDS ORDERED: IPRATROPIUM BROM 0.5MG/2.5ML NEB PRN (20:14)
[2020-02-14] MEDS ORDERED: ONDANSETRON 4 MG/2 ML VIAL IV PRN (20:14)
[2020-02-14] MEDS ORDERED: FENTANYL CITR 100 MCG/2 ML IV PRN (20:14)
[2020-02-14] MEDS ORDERED: D5 0.45 NS 1,000 ML IV SCH (20:14)
[2020-02-14] MEDS ORDERED: NOREPINEPHRINE 4mg/D5W 250mL 4 MG/250 ML BAG IV ONE ×2 (20:54→23:42)
[2020-02-14] MEDS ORDERED: INSULIN -REGULAR HUMAN 50 UNIT/0.5 ML ML SQ SCH (21:00)
[2020-02-14] MEDS: HYDROCORTISONE SUC 100 MG INJ IV SCH ×2 (21:00→21:27)
[2020-02-14] MEDS: THIAMINE 200 MG/2 ML INJ IVP SCH (21:27)
[2020-02-14] MEDS: Ringers Lactate 1,000 ML IV SCH (21:28)
[2020-02-14] MEDS ORDERED: AMIODARONE HCL 900 MG in Dextrose 5%-Water 482 ML IV SCH (22:00)
[2020-02-14] MEDS ORDERED: PANTOPRAZOLE 40 MG INJ ONE (22:36)
[2020-02-14] MEDS ORDERED: PANTOPRAZOLE INJ 80 MG in NA CHLORIDE 0.9% 250 ML IV SCH (23:00)
[2020-02-14] MEDS: NOREPINEPHRINE 4 MG in D5W 250 ML IV PRN (23:45)
[2020-02-14] MEDS ORDERED: D50W 25 GM/50 ML SYRINGE/VIAL IV PRN (23:51)
[2020-02-14] MEDS ORDERED: GLUCAGON 1 MG/VIAL IM PRN (23:51)
[2020-02-15] MEDS: INSULIN -REGULAR HUMAN 50 UNIT/0.5 ML ML SQ SCH ×2 (00:41→05:32)
[2020-02-15] MEDS ORDERED: Meropenem 500 MG VIAL IV SCH (01:00)
[2020-02-15] MEDS: Ringers Lactate 1,000 ML IV SCH (01:06)
[2020-02-15] MEDS ORDERED: NOREPINEPHRINE 4mg/D5W 250mL 4 MG/250 ML BAG IV ONE ×2 (01:55→04:07)
[2020-02-15] MEDS: NOREPINEPHRINE 4 MG in D5W 250 ML IV PRN ×3 (01:57→09:57)
[2020-02-15] MEDS ORDERED: EPINEPHrine 4 MG in NA CHLORIDE 0.9% 250 ML IV PRN (03:13)
[2020-02-15] MEDS ORDERED: VANCOMYCIN 1.25 GM in NA CHLORIDE 0.9% 250 ML IVPB SCH (05:00)
[2020-02-15 05:03] LABS: Absolute Lymphocytes (CBC) 3.2 K/uL (0.7-4.9); Basophils % 0.2 % (0-1.3); Lymphocytes % 16.9 % (15.3-44.8); MPV 9.5 fL (7.6-11.3); RBC Red Blood Cell Count 4.57 M/uL (3.86-4.86)
[2020-02-15 05:17] LABS: Potassium 3.8 mmol/L (3.5-5.1)
[2020-02-15 05:30] LABS: Blood Gas Oxyhemoglobin 97.1 % (94-97); Blood O2 Saturation 98.2 % (92-98.5)
[2020-02-15] MEDS ORDERED: D5W 1,000 ML IV ONE (05:57)
[2020-02-15] MEDS ORDERED: D5W 1,000 ML with NA BICARB 8.4% 100 MEQ IV SCH ×2 (06:00)
[2020-02-15 06:03] VITALS: O2SAT 97; BMI 39.9
[2020-02-15] MEDS ORDERED: WATER FOR INJ,STERILE 10 ML ONE (07:58)
[2020-02-15] MEDS: HYDROCORTISONE SUC 100 MG INJ IV SCH (07:59)
[2020-02-15] MEDS: THIAMINE 200 MG/2 ML INJ IVP SCH (08:00)
[2020-02-15] MEDS ORDERED: PANTOPRAZOLE INJ 80 MG in NA CHLORIDE 0.9% 250 ML IV SCH (08:00)
--- NOTE | 2020-02-15 08:43 | P.CNS ---
Date of Consult: 02/15/20 Chief Complaint: COLLAPSED AT HOME History of Present Illness: Patient is 74 years of age had recently traveled to [place] and came back there was no respiratory symptoms cough or fever family returned from [place] there was self quarantined while out in the garden she collapsed the flow coded no CPR was done brought here to the emergency room was intubated transferred to the ICU patient is in refractory shock despite maximum vasopressors multiorgan failure Allergies Penicillins Allergy (Verified 05/16/19 08:22) Rash Home Medications: Cholecalciferol (Vitamin D3) [Vitamin D 5,000 IU Cap*] 5,000 unit PO DAILY 01/26 Diphenhydramine HCl [Allergy Medication] 25 mg PO DAILY 01/26/19 Duloxetine [Cymbalta *] 60 mg PO BID 01/26/19 Losartan Potassium [Cozaar*] 50 mg PO [id number] 01/26/19 Glutathione 1 tab MC DAILY 05/04/19 L.acidoph,Paracasei, B.lactis [Probiotic] 1 each PO DAILY 05/04/19 - Past Medical/Surgical History Diabetic: No -: cataract -: Htn -: cataract surgery - Social History Alcohol use: No CD- Drugs: No Caffeine use: No Place of Residence: Home Review of Systems is unable to be obtained Physical Examination Temp Pulse Resp BP Pulse Ox 97.2 F 64 27 H 81/56 L 98 02/15/20 04:00 02/15/20 06:45 02/15/20 06:45 02/15/20 06:45 02/15/20 06:30 General: Comatose, Obese Respiratory: Clear to auscultation bilaterally, Diminished Cardiovascular: No edema Gastrointestinal: Normal bowel sounds, Soft and benign Neurological: Other (Patient is coma toes unresponsive no plantar reflexes pupils fixed and dilated no spontaneous movement of extremities) Laboratory Data (last 24 hrs) 02/14/20 14:05: PT 18.8 H, INR 1.62 02/14/20 14:05: WBC 22.0 H*, Hgb 13.5, Hct 43.1, Plt Count 218 02/14/20 14:05: Sodium 142, Potassium 5.2 H, BUN 25 H, Creatinine 1.77 H, Glucose 447 H*, Magnesium 2.6 H, Total Bilirubin 0.6, AST 1142 H*, ALT 1175 H*, Alkaline Phosphatase 191 H - Problems (1) Cardiogenic shock Current Visit: Yes Status: Acute Plan: Patient is 74 years of age admitted when the shock probably cardiogenic no evidence of sepsis nor expiratory symptoms patient is acidotic on bicarb drip maximum vasopressor therapy patient has a DNR discuss with the family members will need to consider withdrawal of care
--- NOTE | 2020-02-15 08:57 | RAD REPORT ---
EXAM DESCRIPTION: RAD - Chest Single View - 02/15/2020 6:43 am CLINICAL HISTORY: pneumonia, post arrest Chest pain. COMPARISON: Chest Single View dated 02/14/2020; CHEST PA AND LAT 2 VIEW dated 01/31/2014; Head C Spine Cap Wo Con dated 02/14/2020 FINDINGS: Portable technique limits examination quality. Tip of the ET tube is above the tsering. Enteric tube descends into the abdomen. Right lower lobe opac ity in noted likely pneumonia or aspiration related. The heart is upper limit normal in size to No di splaced fractures.
[2020-02-15] MEDS ORDERED: Meropenem 500 MG in NA CHLORIDE 0.9% 100 ML IV SCH (09:00)
[2020-02-15 09:12] VITALS: TEMP 97.1
[2020-02-15 11:49] VITALS: BP 67/16
[2020-02-16] MEDS ORDERED: VANCOMYCIN 2 GM in NA CHLORIDE 0.9% 500 ML IVPB SCH ×2
--- NOTE | 2020-02-24 14:41 | P.DS ---
Admission Date: 02/14/20 Discharge Date: 02/24/20 Disposition: Reason for Admission: COLLAPSED AT HOME - Problems (1) Ventricular fibrillation Status: Acute (2) ARDS (adult respiratory distress syndrome) Status: Acute (3) Septic shock Status: Acute Brief History of Present Illness: MS. CARRILLO COLLAPSED AT HOME. SHE PER FAMILY WAS OKAY THIS AM. SHE WAS FOUND TO HAVE V.FIB, WAS INTUBATED, SHOCKED AND ACLS PROTOCOL WAS FOLLOWED BY ER STAFF. SHE IS COMATOSE, SHE HAS NSR. SHE IS ON LEVOPHED DRIP. SHE HAS BEEN TO [place] AND JUST CAME BACK 5 DAYS AGO. SHE HAD NO FEVER OR DYSPNEA BEFORE SHE COLLAPSED. HER FAMILY HAS BEEN SENT HOME TO QUARANTINE UNTILS RESULTS ARE BACK. Hospital Course: MS. CARRILLO CAME AFTER COLLAPSING AT HOME, HAD V. FIB, REVIVIAL FAILED TO RECOVER HER. SHE HAD HIGH DOSE OF LEVOPHED AND BP STILL KEPT ON GETTING WORSE. SHE HAD NO FEVER BUT SHE HAD BEEN TO [place] RECENTLY HER COVID TEST REPORT CAME BACK JUST YESTERDAY, A FEW DAYS AFTER DISCHARGE. WE NOTIFIED THE FAMILY. SHE WITHIN A DAY OF ADMISSION OF CARDIAC SHOCK FROM MS AND V FIB. Vital Signs/Physical Exam: Temp Pulse Resp BP Pulse Ox 97.1 F 35 L 11 L 67/16 L 80 L 02/15/20 08:00 02/15/20 11:00 02/15/20 09:30 02/15/20 11:00 02/15/20 11:00 Laboratory Data at Discharge: WBC 18.7 K/uL (4.3-10.9) H D 02/15/20 04:40 Hgb 13.5 g/dL (12.0-15.0) 02/15/20 04:40 Hct 43.0 % (36.0-45.0) 02/15/20 04:40 Plt Count 211 K/uL (152-406) 02/15/20 04:40 PT 18.8 SECONDS (9.5-12.5) H 02/14/20 14:05 INR 1.62 02/14/20 14:05 Sodium 143 mmol/L (136-145) 02/15/20 04:40 Potassium 3.8 mmol/L (3.5-5.1) 02/15/20 04:40 BUN 38 mg/dL (7-18) H 02/15/20 04:40 Creatinine 3.40 mg/dL (0.55-1.3) H D 02/15/20 04:40 Glucose 133 mg/dL (74-106) H 02/15/20 04:40 Magnesium 2.6 mg/dL (1.8-2.4) H 02/14/20 14:05 Total Bilirubin 0.6 mg/dL (0.2-1.0) 02/14/20 14:05 AST 1142 U/L (15-37) H* 02/14/20 14:05 ALT 1175 U/L (12-78) H* 02/14/20 14:05 Alkaline Phosphatase 191 U/L (45-117) H 02/14/20 14:05 Troponin I > 200.00 ng/mL (0.0-0.045) H* 02/15/20 01:15 Home Medications: Cholecalciferol (Vitamin D3) [Vitamin D 5,000 IU Cap*] 5,000 unit PO DAILY 01/26 Diphenhydramine HCl [Allergy Medication] 25 mg PO DAILY 01/26/19 Duloxetine [Cymbalta *] 60 mg PO BID 01/26/19 Losartan Potassium [Cozaar*] 50 mg PO [id number] 01/26/19 Glutathione 1 tab MC DAILY 05/04/19 L.acidoph,Paracasei, B.lactis [Probiotic] 1 each PO DAILY 05/04/19
== END 2020-02-15 11:33 | disposition expired ==
LOC: ER 12:12 → ERHOLD 17:21 → 3RD-ICU 19:39
PROVIDERS: ADMIT Internal Medicine; ATTEND Internal Medicine
PROC: 0BH17EZ Insertion of Endotracheal Airway into Trachea, Via Natural or Artificial Opening (ICD-10-PCS; principal; 2020-02-14)
PROC: 5A1935Z Respiratory Ventilation, Less than 24 Consecutive Hours (ICD-10-PCS; 2020-02-14)
DX: I21.9 Acute myocardial infarction, unspecified (principal); R65.21 Severe sepsis with septic shock; J80 Acute respiratory distress syndrome; E87.2 Acidosis; I49.01 Ventricular fibrillation; R57.0 Cardiogenic shock; Z03.818 Encounter for observation for suspected exposure to other biological agents ruled out
CPT/HCPCS: 36415; 51702; 70450; 71045; 71250; 72125; 80048; 80076; 81003; 81015; 82805; 82947; 83605; 83735; 83880; 84145; 84484; 85025; 85610; 87040; 87070; 87205; 87804; 92950; 93005; 94002; 94003; 99291; 99292; C9113; J0171; J0282; J1720; J3370; J3411; J7030; J7060; J7120; U0002